=== PATIENT | male | born 1965 | race Caucasian/White ===

== ENCOUNTER 2019-07-09 17:54 | Emergency (ER) | payer OTHER ==
[2019-07-09 18:59] VITALS: BP 145/77
--- NOTE | 2019-07-09 19:24 | UC ---
Skin Complaint HPI - HPI Summary HPI Summary: 54 yo with onset of rash on the left breast x 3 days ago, described as burning and very uncomfortable. No spread locally, but today he has increasing rash with same sensation on the left forearm. Was mowing when he became aware of the rash. has used topical antibiotic, 1% HC cream, and calamine with no relief of discomfort. - History of Current Complaint Chief Complaint: UCSkin Time Seen by Provider: 07/09/19 19:14 Stated Complaint: RASH Hx Obtained From: Patient Onset/Duration: Gradual Onset Skin Exposure Onset/Duration: Days Ago Onset Severity: Moderate Current Severity: Moderate Pain Intensity: 8 Aggravating Factor(s): Clothing, Touch Alleviating Factor(s): Nothing Associated Signs & Symptoms: Positive: Negative Related History: Insect Bite/Sting - Allergy/Home Medications Allergies/Adverse Reactions: Allergies Allergy/AdvReac Type Severity Reaction Status Date / Time ibuprofen Allergy Intermediate Vomiting Verified 07/09/19 18:49 NSAIDS (Non-Steroidal Allergy Intermediate Vomiting Verified 07/09/19 18:49 Anti-Inflamma Home Medications: Home Medications Atorvastatin* [Lipitor 10 MG*] 1 tab QPM 07/09/19 [History Confirmed 07/09/19] Levothyroxine TAB* [Synthroid TAB*] 112 mcg PO DAILY 07/09/19 [History Confirmed 07/09/19] Pioglitazone TAB* [Actos TAB*] 1 tab DAILY 07/09/19 [History Confirmed 07/09/19] PMH/Surg Hx/FS Hx/Imm Hx - Additional Past Medical History Additional PMH: outbreak of burning rash on left breast x 3 days ago, noticed it while mowing, with increase patches on the left forearm today. No fever or chills, Hx of diabetes, not well controlled. Endocrine History: Diabetes - Surgical History Surgical History: Yes Surgery Procedure, Year, and Place: Left Arm Surgery. umbilical hernia. gallbladder - Family History Known Family History: Positive: Non-Contributory - Social History Occupation: Employed Full-time Lives: With Family Alcohol Use: Rare Substance Use Type: None Smoking Status (MU): Former Smoker When Did the Patient Quit Smoking/Using Tobacco: 2009 Review of Systems All Other Systems Reviewed And Are Negative: Yes Constitutional: Positive: Other - diabetes is not well controlled, had FS of 280 today, a1c >8. Negative: Fever, Fatigue Respiratory: Positive: Negative Gastrointestinal: Positive: Negative Neurological: Positive: Negative, Headache, Weakness, Paresthesia Is Patient Immunocompromised?: No Physical Exam Triage Information Reviewed: Yes Appearance: Well-Appearing, Pain Distress - mild, Obese Vital Signs: Initial Vital Signs Temp 97.7 F 07/09/19 18:52 Pulse 67 07/09/19 18:52 Resp 16 07/09/19 18:52 BP 145/77 07/09/19 18:52 Pulse Ox 99 07/09/19 18:52 Eye Exam: Normal ENT: Positive: Pharynx normal Respiratory: Positive: Lungs clear, Normal breath sounds Cardiovascular: Positive: RRR, No Murmur Skin Exam: Other - left breast with approx 9 cm area of raised erythematous rash without blisters covering the areola and the medial and inferior breast. Mildly warm, tender. Left forearm with patchy erythematous rash scattered over forearm from elbow to wrist. Course/Dx - Course Course Of Treatment: Discussed contact dermatitis. Considered zoster but on multiple dermatomes and appearance is not highly suggestive given number of days duration. Will treat as contact dermatitis. - Differential Diagnoses - Skin Complaint Differential Diagnoses: Cellulitis, Contact Dermatitis, Eczema - Diagnoses Provider Diagnosis: Contact dermatitis Discharge ED - Sign-Out/Discharge Documenting (check all that apply): Patient Departure All imaging exams completed and their final reports reviewed: No Studies - Discharge Plan Condition: Stable Disposition: HOME Prescriptions: Triamcinolone 0.5% CREAM(NF) [Triamcinolone 0.5% CREAM*] 1 applic TOPICAL TID # 45 gm Patient Education Materials: Contact Dermatitis (ED) Forms: *Work Release Referrals: Kingsley Márquez PA [Primary Care Provider] - Additional Instructions: You can check on using soaks of Domber[employer]'s solution to the areas affected for relief of symptoms (check with your pharmacist). Apply triamcinolone cream three times daily. Follow up if the rash is spreading or not resolving. - Billing Disposition and Condition Condition: STABLE Disposition: Home
== END 2019-07-09 19:46 | disposition home or self-care (01) ==
LOC: UCCORT 17:54
DX: L25.9 Unspecified contact dermatitis, unspecified cause (principal); E11.9 Type 2 diabetes mellitus without complications; Z79.84 Long term (current) use of oral hypoglycemic drugs; Z88.6 Allergy status to analgesic agent; Z87.891 Personal history of nicotine dependence
CPT/HCPCS: 99212; G0463